=== PATIENT | male | born 1980 | race Caucasian/White ===

== ENCOUNTER 2019-08-24 21:42 | Emergency (ER) | payer OTHER, BC ==
[~2019-08-24] VITALS: Ht 182.9 cm; Wt 99.8 kg
[2019-08-24] MEDS ORDERED: OMEPRAZOLE20 M1 PO (22:01)
[2019-08-24] MEDS ORDERED: KEFLEX500 MG PO (23:05)
== END 2019-08-24 23:23 | disposition home or self-care (01) ==
LOC: ED 21:42
DX: M25.521 Pain in right elbow (principal); Z79.899 Other long term (current) drug therapy
CPT/HCPCS: 73080; 80053; 83605; 85025; 99283-25